=== PATIENT | female | born 2000 | race Caucasian/White ===

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

== ENCOUNTER → 2021-06-29 | Outpatient (CLI) | payer BC | LOC: COL.RAD 09:35 | DX: R56.9 Unspecified convulsions (principal) | CPT/HCPCS: A9575 ==

== ENCOUNTER 2021-10-02 16:30 | Emergency (ER) | payer BC ==
[~2021-10-02] VITALS: Ht 170.2 cm; Wt 75.0 kg
[2021-10-02 16:31] VITALS: TEMP 98.7
[2021-10-02 16:53] LABS: BASO # 0.1 K/mm3 (0.0-0.2); BASO % 0.8 % (0.0-2.0); EOS # 0.1 K/mm3 (0.0-0.7); EOS % 1.7 % (0.0-4.0); GRAN # 4.3 K/mm3 (1.4-6.5); HEMOGLOBIN 10.9 g/dl (12.0-15.0); LYMPH # 2.3 K/mm3 (1.2-3.4); LYMPH % 31.1 % (20.0-51.0); MEAN CELL VOLUME 73 fl (80.0-95.0); MEAN CORPUSCULAR HEMOGLOBIN 23 pg (26-32); MEAN CORPUSCULAR HGB CONC 31 g/dl (33.0-37.0); MEAN PLATELET VOLUME 10.9 fl (7.4-10.4); MONO # 0.5 K/mm3 (0.1-0.6); MONO % 7.3 % (1.7-9.3); PLATELET COUNT 365 K/mm3 (130-400); RED BLOOD COUNT 4.81 M/mm3 (4.10-5.30); REDCELL DISTRIBUTION WIDTH-CV 14.1 % (11.5-14.5)
[2021-10-02 17:05] LABS: HEMATOCRIT 35.2 % (35.0-45.0)
[2021-10-02 17:11] LABS: ALANINE AMINOTRANSFERASE 9 U/L (0-55); ALBUMIN 3.2 gm/dL (3.5-5.0); ALKALINE PHOSPHATASE 79 U/L (40-150); ANION GAP 13 mmol/L (7-16); AST,SGOT 23 U/L (5-34); BILIRUBIN,TOTAL 0.1 mg/dL (0.2-1.2); BLOOD UREA NITROGEN 15 mg/dL (8-21); CALCIUM 8.7 mg/dL (8.4-10.2); CARBON DIOXIDE 18 mmol/L (22-29); CHLORIDE 111 mmol/L (98-107); CREATININE, serum 0.67 mg/dL (0.57-1.11); GLUCOSE 94 mg/dL (70-99); POTASSIUM 4.8 mmol/L (3.5-4.5); SODIUM 142 mmol/L (136-145); TOTAL PROTEIN 7.4 gm/dL (6.2-8.1)
[2021-10-02 17:16] LABS: ALCOHOL(ethanol),MEDICAL < 10 mg/dL (0-10)
[2021-10-02 17:45] VITALS: BP 111/77; PULSE 92
== END 2021-10-02 17:55 | disposition home or self-care (01) ==
LOC: COL.ER 16:30
PROVIDERS: Emergency Medicine
DX: G40.909 Epilepsy, unspecified, not intractable, without status epilepticus (principal); D64.9 Anemia, unspecified
CPT/HCPCS: J7030

== ENCOUNTER → 2021-12-02 | Outpatient (CLI) | payer BC | LOC: COL.RAD 07:23 | DX: G62.9 Polyneuropathy, unspecified (principal); M54.17 Radiculopathy, lumbosacral region; M62.838 Other muscle spasm | CPT/HCPCS: A9575 ==

== ENCOUNTER 2022-06-09 22:54 | Emergency (ER) | payer BC ==
[~2022-06-09] VITALS: Ht 170.2 cm; Wt 86.4 kg
[2022-06-09] MEDS ORDERED: LAMICTAL200 MG PO (22:58)
[2022-06-09] MEDS ORDERED: VALIUM 5MG T5 MG/TAB PO (22:58)
[2022-06-09] MEDS ORDERED: NEURONTIN100 MG/CAP PO (22:58)
[2022-06-09] MEDS ORDERED: INDERAL60 MG PO (22:59)
[2022-06-09] MEDS ORDERED: CELEBREX 200MG200 MG PO (22:59)
[2022-06-09] MEDS ORDERED: ESTARYLLA 35 MC1 TAB PO (22:59)
[2022-06-09 23:00] VITALS: TEMP 98.5
[2022-06-09] MEDS ORDERED: SKELAXIN 800MG800 MG PO (23:00)
[2022-06-09 23:40] LABS: BASO % 0.5 % (0.0-2.0); EOS # 0.1 K/mm3 (0.0-0.7); EOS % 1.1 % (0.0-4.0); GRAN # 4.8 K/mm3 (1.4-6.5); GRAN % 57.9 % (42.2-75.2); LYMPH # 2.9 K/mm3 (1.2-3.4); LYMPH % 34.5 % (20.0-51.0); MEAN CELL VOLUME 65 fl (80.0-95.0); MEAN CORPUSCULAR HGB CONC 29 g/dl (33.0-37.0); MEAN PLATELET VOLUME 10.2 fl (7.4-10.4); MONO # 0.5 K/mm3 (0.1-0.6); MONO % 5.9 % (1.7-9.3); PLATELET COUNT 290 K/mm3 (130-400); RED BLOOD COUNT 4.96 M/mm3 (4.10-5.30); REDCELL DISTRIBUTION WIDTH-CV 16.4 % (11.5-14.5)
[2022-06-09 23:43] LABS: HEMATOCRIT 32.4 % (35.0-45.0); HEMOGLOBIN 9.5 g/dl (12.0-15.0); MEAN CORPUSCULAR HEMOGLOBIN 19 pg (26-32)
[2022-06-09 23:55] LABS: ALANINE AMINOTRANSFERASE 8 U/L (0-55); ALBUMIN 3.5 gm/dL (3.5-5.0); ALKALINE PHOSPHATASE 93 U/L (40-150); ANION GAP 10 mmol/L (7-16); AST,SGOT 10 U/L (5-34); BILIRUBIN,TOTAL 0.2 mg/dL (0.2-1.2); BLOOD UREA NITROGEN 14 mg/dL (7-19); CALCIUM 9.7 mg/dL (8.4-10.2); CARBON DIOXIDE 22 mmol/L (22-29); CHLORIDE 107 mmol/L (98-107); CREATININE, serum 0.78 mg/dL (0.57-1.11); GLUCOSE 149 mg/dL (70-99); POTASSIUM 3.8 mmol/L (3.5-4.5); SODIUM 139 mmol/L (136-145); TOTAL PROTEIN 7.5 gm/dL (6.2-8.1)
[2022-06-10 00:02] LABS: TROPONIN-I < 0.010 ng/mL (0.00-0.033)
[2022-06-10 01:08] VITALS: BP 131/87; PULSE 88
== END 2022-06-10 01:14 | disposition home or self-care (01) ==
LOC: COL.ER 22:54
PROVIDERS: Physician Assistant
DX: R07.89 Other chest pain (principal); R10.9 Unspecified abdominal pain; D64.9 Anemia, unspecified
CPT/HCPCS: J2060; J7030

== ENCOUNTER 2023-01-22 12:24 | Emergency (ER) | payer BC ==
[~2023-01-22] VITALS: Ht 170.2 cm; Wt 86.4 kg
[~2023-01-22 12:24] MED LIST changes: +CELEBREX 200MG200 MG PO; +ESTARYLLA 35 MC1 TAB PO; +INDERAL60 MG PO; +LAMICTAL200 MG PO; +NEURONTIN100 MG/CAP PO; +SKELAXIN 800MG800 MG PO; +VALIUM 5MG T5 MG/TAB PO
[2023-01-22 12:30] VITALS: TEMP 98.3
[2023-01-22 13:01] LABS: BASO # 0.1 K/mm3 (0.0-0.2); BASO % 0.6 % (0.0-2.0); EOS # 0.1 K/mm3 (0.0-0.7); EOS % 0.9 % (0.0-4.0); GRAN # 8.6 K/mm3 (1.4-6.5); GRAN % 73.6 % (42.2-75.2); LYMPH # 2.4 K/mm3 (1.2-3.4); LYMPH % 20.6 % (20.0-51.0); MEAN CELL VOLUME 66 fl (80.0-100.0); MEAN CORPUSCULAR HGB CONC 28 g/dl (33.0-37.0); MEAN PLATELET VOLUME 10.3 fl (7.4-10.4); MONO # 0.5 K/mm3 (0.1-0.6); PLATELET COUNT 304 K/mm3 (130-400); RED BLOOD COUNT 4.93 M/mm3 (4.10-5.30); REDCELL DISTRIBUTION WIDTH-CV 17.4 % (11.5-14.5)
[2023-01-22 13:13] LABS: HEMATOCRIT 32.4 % (37.0-47.0); HEMOGLOBIN 9.1 g/dl (12.5-16.0); MEAN CORPUSCULAR HEMOGLOBIN 18 pg (27-31)
[2023-01-22 13:19] LABS: ALBUMIN 3.6 gm/dL (3.5-5.0); BILIRUBIN,TOTAL 0.3 mg/dL (0.2-1.2); CALCIUM 8.9 mg/dL (8.4-10.2); CREATININE, serum 0.76 mg/dL (0.57-1.11); POTASSIUM 4.2 mmol/L (3.5-4.5); TOTAL PROTEIN 7.5 gm/dL (6.2-8.1)
[2023-01-22 13:23] VITALS: PULSE 93
[2023-01-22 14:03] VITALS: BP 116/75
== END 2023-01-22 14:24 | disposition home or self-care (01) ==
LOC: COL.ER 12:24
PROVIDERS: Emergency Medicine
DX: R07.89 Other chest pain (principal); D64.9 Anemia, unspecified; D72.829 Elevated white blood cell count, unspecified